=== PATIENT | female | born 1975 | race Caucasian/White ===

== ENCOUNTER 2018-05-01 17:08 | Emergency (ER) | payer OTHER ==
[~2018-05-01] VITALS: Ht 154.9 cm; Wt 65.8 kg
[~2018-05-01 17:08] MED LIST: ACETAMINOPHEN-1 EAC1 PO; ALEVE220 MG PO; AMOXICILLIN 50500 MG PO; LIDOCAINE VISC100 ML SWISH&SPIT; NOHOMEMEDICATIONS; OMEPRAZOLE40 MG PO; TYLENOL325 MG PO
[2018-05-01 17:36] LABS: ABSOLUTE EOSINOPHILS 0.3 thou/uL (0.0-0.7); ABSOLUTE LYMPHOCYTES 2.8 thou/uL (0.8-5.3); ABSOLUTE MONOCYTES 0.6 thou/uL (0.0-1.2); ABSOLUTE NEUTROPHILS 3.1 thou/uL (1.6-8.1); BASOPHILS 0.4 %; EOSINOPHILS 4.6 %; HEMATOCRIT 37.1 % (37.0-47.0); HEMOGLOBIN 12.8 gm/dL (12.0-15.0); LYMPHOCYTES 40.9 %; MCH 33.1 pg (26.0-34.0); MCHC 34.5 g/dL (28.0-37.0); MCV 96.1 fL (80.0-100.0); MONOCYTES 8.3 %; MPV 8.5 fl. (7.2-11.1); NUCLEATED RBCS 0 /100WBC; PLATELET COUNT* 420 thou/uL (150-400); POLYS 45.8 %; RBC 3.86 mil/uL (4.20-5.00); RDW-CV 12.1 % (10.5-14.5); WBC 6.8 thou/uL (4.0-11.0)
[2018-05-01 17:59] LABS: ALBUMIN 3.8 g/dL (3.4-5.0); ALKALINE PHOSPHATASE 75 U/L (46-116); ANION GAP 10 mmol/L (7-16); BUN 8 mg/dL (7-18); CALCIUM 8.9 mg/dL (8.5-10.1); CHLORIDE 103 mmol/L (98-107); CO2 25 mmol/L (21-32); CREATININE 0.7 mg/dL (0.6-1.3); GLUCOSE 93 mg/dL (70-99); LIPASE 107 U/L (73-393); MAGNESIUM 2.2 mg/dL (1.8-2.4); NT-PRO BRAIN NAT PEPTIDE 59 pg/mL (<300); POTASSIUM 3.7 mmol/L (3.5-5.1); SGOT 19 U/L (15-37); SGPT 22 U/L (30-65); SODIUM 138 mmol/L (136-145); TOTAL BILIRUBIN 0.2 mg/dL (<0.1-1.0); TOTAL PROTEIN 7.5 g/dL (6.4-8.2); TROPONIN-I LEVEL <0.06 ng/mL (<0.06)
[2018-05-01] MEDS ORDERED: AMOXICILLIN875 MG PO (20:50)
[2018-05-01] MEDS ORDERED: FLONASE 0.05%50 MCG NASAL (20:50)
[2018-05-01 21:26] VITALS: BP 119/70
--- NOTE | 2018-05-02 10:09 | EKG ---
[place] [address] ELECTROCARDIOGRAM REPORT Name: PAYTON HARRISON Room: [facility]#: [id number] Admission: 05/01/18 Attend Phys: Discharge: 05/01/18 Date of : 79 Report #: [id number] THIS REPORT FOR: //name// [facility] ED Test Date: 2018-05-01 Test Time: 17:13:54 Pat Name: PAYTON HARRISON Department: Room: Gender: F [employer] Apprentice: nataly : 1975 Requested By: Juan Ramon Brooks Order Number: [id number] MD: Tramaine Ceja Measurements Intervals Ingram Rate: 69 P: 64 DC: 157 QRS: 62 QRSD: 89 T: 24 QT: 413 QTc: 443 Interpretive Statements Sinus rhythm Compared to ECG 09/14/2015 15:11:04 No significant changes Electronically Signed On 05-02-2018 10:09:40 [employer] by Tramaine Ceja [email or web address] <ELECTRONICALLY SIGNED> By: Tramaine Ceja MD, [facility] 05/02/18 1009 1713 1713 Tramaine Ceja MD, FACC /EPI
== END 2018-05-01 21:26 | disposition home or self-care (01) ==
LOC: M.ERS 17:08
PROVIDERS: Emergency Medicine Emergency Medical Services
DX: R07.89 Other chest pain (principal); J32.9 Chronic sinusitis, unspecified; J45.909 Unspecified asthma, uncomplicated